=== PATIENT | male | born 1960 | race Caucasian/White ===

== ENCOUNTER 2016-11-05 08:37 | Emergency (ER) | payer OTHER ==
[~2016-11-05] VITALS: Ht 182.9 cm; Wt 111.1 kg
[2016-11-05] MEDS ORDERED: LIDOCAINE/EPI 1%-1:100,000 (XYLOCAINE) 20ML INJ ONE (08:45)
[2016-11-05] MEDS ORDERED: TETANUS,DIPTH,PERTUSS P/F (BOOSTRIX) 0.5 ML VIAL IM ONE (08:45)
[2016-11-05] MEDS ORDERED: LIDOCAINE/EPI 2% 1:100,00 (XYLOCAINE) 20 ML VIAL ONE (08:53)
--- NOTE | 2016-11-05 09:12 | Diagnostic Imaging Report ---
INDICATION: Crush injury. Multiple soft tissue radiopacities about the lateral mid and forefoot. No underlying fracture or dislocation however. IMPRESSION: Soft tissue foreign bodies peripherally, no osseous injury apparent. Dictated by: Dictated on workstation # [id number]
--- NOTE | 2016-11-05 09:41 | ED General ---
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 HE HAS LAC TO TOP OF R FOOT. Nursing Sepsis Screen: No Definite Risk Source of Information: Patient Exam Limitations: No Limitations History of Present Illness Time Seen by Provider: 08:39 Initial Comments This 56-year-old gentleman presents to the emergency room with a laceration on the right foot. 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 He denies any other injuries. He has a 3 cm laceration on the dorsum of the left foot. He has not up-to-date on his tetanus immunizations. There was no drug or alcohol involvement. Allergies and Home Medications Allergies Coded Allergies: No Known Drug Allergies (Unverified , 11/05/16) Constitutional: no symptoms reported EENTM: no symptoms reported Respiratory: no symptoms reported Cardiovascular: see HPI Gastrointestinal: no symptoms reported Musculoskeletal: see HPI Skin: see HPI Psychiatric/Neurological: No Symptoms Reported Hematologic/Lymphatic: No Symptoms Reported Past Muvumxh-Fawxnh-Dtxvil Hx Patient Social History Alcohol Use: Occasionally Uses Recreational Drug Use: No Smoking Status: Never a Smoker 2nd Hand Smoke Exposure: No Recent Foreign Travel: No Contact w/Someone Who Travel: No Recent Infectious Disease Expo: No Recent Hopitalizations: No Immunizations Up To Date Tetanus Booster (TDap): Unknown Surgeries HX Surgeries: No Respiratory Hx Respiratory Disorders: No Cardiovascular Hx Cardiac Disorders: No Neurological Hx Neurological Disorders: No Reproductive System Hx Reproductive Disorders: No Genitourinary Hx Genitourinary Disorders: No Gastrointestinal Hx Gastrointestinal Disorders: No Musculoskeletal Hx Musculoskeletal Disorders: No Endocrine Hx Endocrine Disorders: No HEENT HX ENT Disorders: No Cancer Hx Cancer: No Psychosocial Hx Psychiatric Problems: No Physical Exam Vital Signs Vital Sign - Last 12Hours 11/05/16 08:44 Temp 97.2 Pulse 90 Resp 18 B/P (MAP) 148/92 Pulse Ox 97 O2 Delivery Room Air Capillary Refill : Less Than 3 Seconds General Appearance: No Apparent Distress, WD/WN HEENT: PERRL/EOMI, Normal ENT Inspection Respiratory: No Respiratory Distress Extremity: Normal Capillary Refill, Other (3 cm laceration on the dorsum of the left foot. Tendon function and range of motion normal. Distal sensation and capillary refill intact. 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 Local anesthesia was provided with lidocaine with epinephrine. Foot was then scrubbed with chlorhexidine and water. Wound was irrigated with sterile saline and Betadine applied. Sutures were applied. Wound was dressed by nursing staff. Progress/Results/Core Measures Results/Orders My Orders Orders - MASSIMO CUEVAS MD Dipht,Pertuss(Acell),Tet Adult (Boostrix (11/05/16 08:45) Lidocaine/Epi 1% 1:100,000 (Xylocaine /E (11/05/16 08:45) Foot, Left, 3 Views (11/05/16 08:41) Lidocaine/Epi 2% 1:100,000 (Xylocaine/Ep (11/05/16 08:53) Medications Given in ED Current Medications Medications Dose Ordered Sig/Beatriz Route Start Time Stop Time Status Last Admin Dose Admin Diphtheria/ Tetanus/Acell Pertussis 0.5 ml ONCE ONCE IM 11/05/16 08:45 11/05/16 08:46 DC 11/05/16 09:12 0.5 ML Lidocaine/ Epinephrine 20 ml STK-MED ONCE .ROUTE 11/05/16 08:53 11/05/16 08:59 DC 11/05/16 09:13 5 ML Vital Signs/I&O Vital Sign - Last 12Hours 11/05/16 08:44 Temp 97.2 Pulse 90 Resp 18 B/P (MAP) 148/92 Pulse Ox 97 O2 Delivery Room Air Blood Pressure Mean: 110 Diagnostic Imaging Diagonstic Imaging: Xray Comments Foot x-ray viewed by me and report reviewed. See report below: NAME: REBEKAH LAU [facility] REC#: [id number] PT STATUS: REG ER : 1960 PHYSICIAN: MASSIMO CUEVAS MD ADMIT DATE: 11/05/16/ER Draft Date of Exam:11/05/16 FOOT, LEFT, 3 VIEWS INDICATION: Crush injury. Multiple soft tissue radiopacities about the lateral mid and forefoot. No underlying fracture or dislocation however. IMPRESSION: Soft tissue foreign bodies peripherally, no osseous injury apparent. Dictated on workstation # [id number] Dict: 11/05/16 0907 Trans: 11/05/16 0912 [facility] [id number] Interpreted by: DAVIDA WETZEL Departure Impression Impression: Primary Impression: Laceration of foot Qualified Codes: S91.312A - Laceration without foreign body, left foot, initial encounter Disposition: HOME, SELF-CARE Condition: Improved Departure-Patient Inst. Decision time for Depature: 09:35 Referrals: DANIEL NICOLE MD (PCP/Family) Primary Care Physician Patient Instructions: Laceration Repair With Stitches (DC) Add. Discharge Instructions: Monitor your wound for signs of infection such as increasing redness, puslike drainage, or fever. Return to care promptly few notice these symptoms. Do not submerge the wound until sutures are removed. Have your sutures removed in 7- 10 days. Return to care as needed. Keep covered when active or in dirty environments. You may apply antibiotic ointment to prevent dressing from sticking to the wound. All discharge instructions reviewed with patient and/or family. Voiced understanding. MASSIMO CUEVAS MD Nov 05, 2016 09:41
[2016-11-05 10:00] VITALS: BP 148/92
--- OUTSIDE RECORDS SUMMARY | 2016-11-07 16:31 | XMS REPORT | Continuity of Care Document ---
Author Author [facility] Organization [facility] Address Unknown Phone Unavailable Allergies Active Description Code Type Severity Reaction Onset Reported/Identified Relationship to Patient Clinical Status Yes No Known Drug Allergies [id number] Drug Allergy Unknown N/ A 11/05/2016 Medications Problems Date Dx Coded Attending Type Code Diagnosis Diagnosed By 11/25/2015 COREY SILVA, DANIEL Lamar Ot S83.206A UNSP TEAR OF UNSP MENISCUS, CURRENT INJU 11/25/2015 COREY SILVA, DANIEL Lamar Ot X58.XXXA EXPOSURE TO OTHER SPECIFIED FACTORS, INI 11/25/2015 COREY SILVA, DANIEL Lamar Ot Y99.8 OTHER EXTERNAL CAUSE STATUS Procedures Results Encounters ACCT No. Visit Date/Time Discharge Status Pt. Type Provider Facility Loc./Unit Complaint [id number] 11/05/2016 08:40:00 2016 10:00:00 DIS Emergency MASON SILVA, MASSIMO Gallardo [facility] ER FOOT LACERATION [id number] 05/26/2015 08:13:00 ACT Outpatient DANIEL NICOLE MD [facility] RAD
== END 2016-11-05 10:00 | disposition home or self-care (01) ==
LOC: EDUNIT# 08:37 → ER 08:40
DX: S91.311A Laceration without foreign body, right foot, initial encounter (principal); Z23 Encounter for immunization; W20.8XXA Other cause of strike by thrown, projected or falling object, initial encounter; Y99.8 Other external cause status
CPT/HCPCS: 12002; 73630; 90715

== ENCOUNTER 2016-11-10 11:31 | Emergency (ER) | payer OTHER ==
[~2016-11-10] VITALS: Ht 182.9 cm; Wt 111.1 kg
--- OUTSIDE RECORDS SUMMARY | 2016-11-10 12:00 | XMS REPORT | Continuity of Care Document ---
Author Author [facility] Organization [facility] Address Unknown Phone Unavailable Allergies Active Description Code Type Severity Reaction Onset Reported/Identified Relationship to Patient Clinical Status Yes No Known Drug Allergies [id number] Drug Allergy Unknown N/ A 11/05/2016 Medications [...] Status Pt. Type Provider Facility Loc./Unit Complaint [id number] 11/05/2016 08:40:00 2016 10:00:00 DIS Emergency MASON SILVA, MASSIMO Gallardo [facility] ER FOOT LACERATION [id number] 05/26/2015 08:13:00 ACT Outpatient DANIEL NICOLE MD [facility] RAD
[2016-11-10] MEDS ORDERED: SULF1TAB35 PO (12:22)
[2016-11-10] MEDS ORDERED: AMOX500C2 PO (12:22)
--- NOTE | 2016-11-10 12:23 | ED Lower Extremity ---
General Stated Complaint: WOUND CHECK Source: patient Exam Limitations: no limitations History of Present Illness Time seen by provider: 12:23 Initial Comments To ER with c/o possible wound infection. Redness around stitches to dorsum of foot. stitches placed 3 days ago. Allergies and Home Medications Allergies Coded Allergies: No Known Drug Allergies (Unverified , 11/05/16) Home Medications Amoxicillin 500 Mg Capsule, 500 MG PO TID, #21 Prescribed by: MARISSA ZAMORA on 11/10/16 1222 Sulfamethoxazole/Trimethoprim 1 Each Tablet, 1 EACH PO BID, #14 Prescribed by: MARISSA ZAMORA on 11/10/16 1222 Constitutional: see HPI EENTM: see HPI Respiratory: no symptoms reported Cardiovascular: no symptoms reported Genitourinary: no symptoms reported Musculoskeletal: no symptoms reported Skin: see HPI Psychiatric/Neurological: No Symptoms Reported Past Webxipw-Odxylp-Qipwcb Hx Patient Social History 2nd Hand Smoke Exposure: No Recent Foreign Travel: No Contact w/Someone Who Travel: No Recent Hopitalizations: No Immunizations Up To Date Tetanus Booster (TDap): Unknown Surgeries HX Surgeries: No Respiratory Hx Respiratory Disorders: No Cardiovascular Hx Cardiac Disorders: No Neurological Hx Neurological Disorders: No Reproductive System Hx Reproductive Disorders: No Genitourinary Hx Genitourinary Disorders: No Gastrointestinal Hx Gastrointestinal Disorders: No Musculoskeletal Hx Musculoskeletal Disorders: No Endocrine Hx Endocrine Disorders: No HEENT HX ENT Disorders: No Cancer Hx Cancer: No Psychosocial Hx Psychiatric Problems: No Physical Exam Vital Signs Vital Sign - Last 12Hours 11/10/16 11/10/16 12:16 12:25 Temp 98.0 Pulse 86 Resp 18 B/P (MAP) 165/94 Pulse Ox 98 O2 Delivery Room Air Capillary Refill : General Appearance: WD/WN, no apparent distress HEENT: PERRL/EOMI, normal ENT inspection Neck: non-tender, full range of motion Respiratory: no respiratory distress, no accessory muscle use Gastrointestinal: non tender, soft Hips: bilateral hip non-tender, bilateral hip normal inspection, bilateral hip normal range of motion Legs: bilateral leg non-tender, bilateral leg normal inspection, bilateral leg normal range of motion Knees: bilateral knee non-tender, bilateral knee normal inspection, bilateral knee normal range of motion Ankles: bilateral ankle non-tender, bilateral ankle normal inspection, bilateral ankle normal range of motion Feet: right foot other (mild erytyema without drainage to incision. ) Neurologic/Psychiatric: alert, normal mood/affect, oriented x 3 Skin: normal color, warm/dry Laceration Repair : Suture Size: 4-0 Progress/Results/Core Measures Results/Orders Vital Signs/I&O Vital Sign - Last 12Hours 11/10/16 11/10/16 12:16 12:25 Temp 98.0 Pulse 86 86 Resp 18 18 B/P (MAP) 165/94 Pulse Ox 98 98 O2 Delivery Room Air Departure Communication Progress Notes this could simply be a local tissue reaction to the sutures. However, he is concerned about infection so will cover with abx. Impression Impression: Primary Impression: Wound infection Disposition: HOME, SELF-CARE Condition: Stable Departure-Patient Inst. Decision time for Depature: 12:21 Referrals: DANIEL NICOLE MD (PCP/Family) Primary Care Physician Patient Instructions: Wound Infection Add. Discharge Instructions: 1. Stay off your feet as much as possible to help reduce the swelling 2. Start the antibiotics today. You may not notice improvement for 24-48 hours. Scripts Amoxicillin (Amoxicillin) 500 Mg Capsule 500 MG PO TID, #21 CAP Prov: MARISSA ZAMORA APRN 11/10/16 Sulfamethoxazole/Trimethoprim (Bactrim Ds Tablet) 1 Each Tablet 1 EACH PO BID, #14 TAB Prov: MARISSA ZAMORA APRN 11/10/16 MARISSA ZAMORA APRN Nov 10, 2016 12:23
[2016-11-10 12:25] VITALS: BP 165/94
== END 2016-11-10 12:25 | disposition home or self-care (01) ==
LOC: EDUNIT# 11:31 → ER 11:33
DX: S91.311D Laceration without foreign body, right foot, subsequent encounter (principal)

== ENCOUNTER 2016-11-14 09:56 | Emergency (ER) | payer OTHER ==
[~2016-11-14] VITALS: Ht 177.8 cm; Wt 90.7 kg
[~2016-11-14 09:56] MED LIST: AMOX500C2 PO; SULF1TAB35 PO
[2016-11-14 10:15] VITALS: BP 148/80
== END 2016-11-14 10:15 | disposition home or self-care (01) ==
LOC: EDUNIT# 09:56 → ER 09:58
DX: Z48.02 Encounter for removal of sutures (principal)
CPT/HCPCS: 87070; 87077; 87186; 87205; 99282